=== PATIENT | female | born 1950 | race Caucasian/White ===

== ENCOUNTER 2024-12-14 08:10 | Day surgery (SDC) | payer MEDICARE, SELFPAY ==
[2024-12-14] VITALS (7 sets, daily range): BP systolic 115–171; BP diastolic 54–85; PULSE 61–74; RESP 16–20; TEMP 36.3–36.4; O2SAT 93–99; BMI 15.9
[2024-12-14] MEDS: Lactated Ringers 1,000 ML 15 ML IV (08:44)
--- NOTE | 2024-12-14 08:50 | RAD_ITS ---
PROCEDURE: LUMBAR SPINE 2 OR 3 VIEWS 12/14/2024 REASON FOR EXAM: LT EPIDURAL STEROID INJECTION L4 L5 S1 TECHNIQUE: Procedure Code: RADSPLL Modality: DX Procedure: LUMBAR SPINE 2 OR 3 VIEWS FINDINGS: Intraoperative fluoroscopy was performed. 13.5 seconds of fluoroscopic time. 1.92 mGy. 2 images. See procedure report for full details. RAD/Lumbar Spine 2 or 3 Views IMPRESSION: As above. Reading Location: [id number]
--- NOTE | 2024-12-14 09:11 | PRE.ANES_ITS ---
ASA Classification* ASA Classification ASA Classification: 2 Assessment & Plan Anesthesia* Anesthesia Assessment Anesthesia Assessment: Discussed sedation and/or anesthesia options, risks, benefits, and alternatives with patient/parents/legal guardian/POA. Questions invited. The patient/parents/legal guardian/POA seems to understand and agrees to proceed with anesthesia plan. Reviewed the physical assessment, medical history, allergy history and patient home medications list prior to surgery/procedure/anesthetic and documented any changes. Performed airway and anesthesia risk assessments. Anesthesia Type Anesthesia Type: MAC History Source History Obtained from:: Patient and Chart Anesthesia Focused Assessment* Temperature: 97.6 F Pulse Rate: 72 Blood Pressure: 171/75 Respiratory Rate: 16 Pulse Ox: 99 Oxygen Delivery Method: Room Air Airway Assessment Mouth opens: >3 cm Mallampati Score: I Teeth Condition: Partial (Patient has an upper partial. It will stay in.) Neck Range of motion (ROM): Limited ROM (Somewhat Decreased) Labs Anesthesia Preop lab: CBC CHEMISTRY COAG Pre-Assessment Diagnosis/Proposed Procedure Planned Operative Procedure(s): (L) LEFT LUMBAR TRANSFOAMINAL EPIDURAL STEROID INJECTION AT L4 L5 S1 UNDER FLUOROSCOPY Anesthesia History Anesthesia History - strategic planning director: Anesthesia History - strategic planning director Hx Hospitalization No 12/07/24 13:08 Any Problems With Anesthesia No 12/07/24 13:08 Cholinesterase deficiency No 12/07/24 13:08 You/Your Family Experience No 12/07/24 13:08 fever (hyperthermia) with Relationship Recent Exposure to Contagious No 12/14/24 08:37 Disease Does patient have nerve No 12/07/24 13:08 stimulator Patient instructed to have device shut off --Does patient have Pacemaker No 12/14/24 08:37 or ICD? When Was Last Pacemaker Check QUESTION #4 FULL TEXT: You/Your Family Experience fever (hyperthermia) with Anesthesia Last Oral Intake Last Oral intake: Last Oral Intake NPO since 18:00 12/14/24 08:37 Meds taken in AM with sips of No 12/14/24 08:37 water? Meds patient instructed to take am of surgery PONV PONV - strategic planning director: PONV - strategic planning director Female Yes 12/07/24 13:08 HX of Motion Sickness No 12/07/24 13:08 HX of N/V After Surgery No 12/07/24 13:08 Non-Smoker No 12/07/24 13:08 Duration of Surgery greater No 12/07/24 13:08 than 60 minutes Number of Risk Factors 1 12/07/24 13:08 PONV Score Low Risk 12/07/24 13:08 Height & Weight Height & Weight: Anesthesia: Height & Weight Height 5 ft 4 in 12/14/24 08:37 Weight: 42 kg 12/14/24 08:37 Body Mass Index (BMI) 15.9 12/14/24 08:37 Respiratory Assessment Respiratory Assessment - strategic planning director: Respiratory Tract Infection Hx - strategic planning director Hx Respiratory Tract Infection No 12/07/24 13:08 STOP Sleep Apnea STOP Sleep Apnea - strategic planning director: STOP Sleep Apnea - strategic planning director Hx Hypertension Yes: ON MEDS 12/07/24 13:08 Hx Sleep Apnea No 12/07/24 13:08 CPAP BIPAP Do you snore loudly (louder No 12/07/24 13:08 than talking or can be heard Do you often feel tired/ No 12/07/24 13:08 fatigued/ sleepy during daytime? Has anyone observed you stop No 12/07/24 13:08 breathing during sleep? STOP Results Negative 12/07/24 13:08 QUESTION #5 FULL TEXT : Do you snore loudly (louder than talking or can be heard through closed doors)? Tobacco Use History Tobacco Use History - strategic planning director: Tobacco Use History - strategic planning director Tobacco Use Smoking Status Light Smoker (<10/day) 12/07/24 13:08 Hx Tobacco Use No 12/07/24 13:08 Years Smoking 30 12/07/24 13:08 Packs Smoked per Day Smoking Cessation Date was within the last 15 years Hx Smoking Cessation Date Hx Smoking Cessation No 12/07/24 13:08 Counseling Any additional information?: Yes Smoking Status: Current every day smoker (Patient did not smoke today.) Hematologic Medial History Hematologic Hx - strategic planning director: Hematologic Medical Hx - roller embosser Hx of Blood Transfusion No 12/07/24 13:08 Hx of Transfusion in last 3 No 12/07/24 13:08 Months Date of Last Transfusion (if within last 3 months) Ever experience any problems No 12/07/24 13:08 with transfusion(s)? Specify any problems Hx of Preganancy in last 3 No 12/07/24 13:08 Months Nurse Filling Out Transfusion JZOLLINGE 12/07/24 13:08 & Questions: Date: 12/07/24 12/07/24 13:08 Time: 13:08 12/07/24 13:08 Patient unable to answer at this time (ie. confused, unrespo /Reproduction History /Reproductive History - strategic planning director: /Reproductive Hx- strategic planning director Hx Now No 12/07/24 13:08 Gestational Age (in weeks): EDC: Hx Hx Para Hx Section SAB No 12/07/24 13:08 Active Medications Active Medications: Current Medications Generic Name Dose Route Start Last Admin Trade Name Freq PRN Reason Stop Dose Admin Lactated Ringer's 1,000 mls @ 15 mls/hr 12/14/24 08:30 12/14/24 08:44 IV 15 mls/hr .Q48H BRYAN Administration PFSH Medical History Hx of polycythemia vera Cancer Wears glasses Wears partial dentures Anxiety Marijuana use Alcohol use Arthritis Bladder disease Back pain Smoker Hypertension Home Medications ?Medication ?Instructions ?Recorded ?Last Taken ?Type clonazepam 0.5 mg tablet (Klonopin) 0.5 mg PO BID 11/10 12/03 Unknown History gabapentin 300 mg capsule 600 mg PO DAILY 12/07/24 Unk nown History hydroxyurea 500 mg capsule 500 mg PO DAILY 12/07/24 Un known History metoprolol tartrate 25 mg tablet 25 mg PO BID 12/07/24 12/13/24 History ondansetron 4 mg disintegrating 4 mg PO Q8H PRN nausea and vomiting 12/07/24 Unknown History tablet Allergy/AdvReac Type Severity Reaction Status Date / Time cephalexin Allergy Severe Anaphylaxis Verified 12/14/24 08:36 Penicillins AdvReac Mild Rash Verified 12/14/24 08:36 Surgical History History of ankle surgery Hx of hysterectomy History of appendectomy Social History Smoking Status: Light Smoker (<10/day) Review of Systems (Anesthesia) ROS Narrative System reviewed and no additional complaints, except as documented.
[2024-12-14] MEDS: Lidocaine 1% (5 ml sdv) 5 ML Vial (09:41)
--- NOTE | 2024-12-14 09:47 | PCM.POST.ANE ---
Anesthesia: Postop Eval I Current Vital Signs Temperature: 97.3 F Pulse Rate: 71 Blood Pressure: 115/60 Respiratory Rate: 20 Pulse Ox: 97 Assessment Airway patent: Yes Spontaneous unlabored respirations: Yes nausea: Yes Vomiting: No Anesthesia Complication: No Fluid Hydration Crystalloid volume administer (ml): 200 Total IV fluid infused: 200 Progress Note Anesthesia document: Postop Eval 1 completed: Yes
--- NOTE | 2024-12-14 09:49 | OP.PCM_ITS ---
Operative Report (Standard) Operative Information Date of Procedure: 12/14/24 Pre-Operative Diagnosis: Lumbosacral radiculopathy, lumbosacral degenerative disc disease, lumbosacral spinal stenosis Post-Operative Diagnosis: Lumbosacral radiculopathy, lumbosacral degenerative disc disease, lumbosacral spinal stenosis Surgery/Procedure Performed: Left-sided lumbar transforaminal epidural steroid injection L4-5, L5-S1 under fluoroscopic guidance senior sustainability consultant: No Type of Anesthesia: Local MAC RN Documented Start/Stop Times: Operation Date: 12/14/24 09:50 Case Time Into Pre-Op 12/14/24 08:22 Anesthesia Start 12/14/24 09:33 Into Room 12/14/24 09:33 Procedure Start 12/14/24 09:39 Procedure End 12/14/24 09:43 Anesthesia End 12/14/24 09:45 Out of Room 12/14/24 09:45 Procedure Start Time: 09:50 Procedure Stop Time: 09:50 Select all DRAINS/GRAFTS/IMPLANTS that apply: None Estimated Blood Loss: 1 Specimen collected: No Description of surgery: PROCEDURE PERFORMED: Left-sided lumbar transforaminal epidural steroid injection, L4-5 and L5-S1. ANESTHESIA: MAC BLOOD LOSS: Minimal COMPLICATIONS: None DESCRIPTION OF PROCEDURE: History and physical of today was reviewed. Risks and benefits of the procedure were explained. The patient understood and agreed to proceed. Informed consent was obtained. IV inserted per routine protocol. The patient was taken to the operating room and placed in the prone position with a pillow positioned underneath the abdomen. The left side of the lower back was prepped and draped in a sterile fashion using iodine x3. Under fluoroscopy guidance on oblique view, the L4 through S1 vertebral bodies were visualized. The skin and subcutaneous tissue was anesthetized with approximately 5 mL of 1% lidocaine using a 25-gauge regular needle. Under direct visualization with fluoroscopy at approximately 35-degree angle, starting on the left L4, ending on the left L5, using a 22-gauge 3 1/2-inch spinal needle, the needle was advanced via the skin. The tip of the needle was maneuvered and directed towards the inferior and medial gutter of the transverse process at the superiormost aspect of the neural foramen. Once the tip of the needle was at the vicinity of the foramen, after negative aspiration for blood or CSF, a total of 1 mL of contrast was injected in divided doses between both levels to confirm correct placement of the needle as well as medial spread. The confirmation was obtained on AP as well as lateral view. After repeated negative aspiration and confirmation on AP as well as lateral view, a total of 6 mL of preservative-free 0.25% Marcaine with 80 mg of Depo-Medrol was injected in divided doses between both levels. The needles were then removed intact. The patient experienced no sign or symptoms of intrathecal or intravascular injection. The patient experienced no paresthesia. The procedure was completed without any apparent difficulty or any complications. The patient appeared to tolerate it well. Assessment and plan: This is a 74-year-old female with lumbosacral radiculopathy, lumbosacral degenerative disc disease, lumbosacral spinal stenosis, status post left-sided lumbar transforaminal epidural steroid injection L4-5, L5-S1 under fluoroscopic guidance, patient will continue her current medications, patient will follow-up in approximately 2 weeks for reevaluation. Surgical Findings: 0 Complications Complications: No Admit VTE Documentation VTE Present on Admission: No VTE Pharm Prophylaxis ordered?: No
--- NOTE | 2024-12-14 12:03 | POSTOPAN2_ITS ---
Anesthesia Postop Eval I Sum Postop Eval Completion status Anesthesia document: Postop Eval 1 completed: Yes Anesthesia Postop Eval I Summary Anesthesia Postop Eval I Summary: Anesthesia Postop Eval I: Assessment Summary Airway patent Yes 12/14/24 09:47 GRAVEL [email or web address].[email or web address] Spontaneous unlabored Yes 12/14/24 09:47 GRAVEL WHEELER.CSIR respirations Mental status nausea Yes 12/14/24 09:47 GRAVEL WHEELER.CSIR Vomiting No 12/14/24 09:47 GRAVEL WHEELER.CSIR Anesthesia Postop Eval I: Fluid Summary Crystalloid volume administer 200 12/14/24 09:47 GRAVEL WHEELER.CSIR (ml) Colloids volume administered ( ml) Blood Product volume administered (ml) Total IV fluid infused 200 12/14/24 09:47 GRAVEL WHEELER.CSIR Anesthesia Postop Eval I: Summary Notes Anesthesia Complication No 12/14/24 09:47 GRAVEL WHEELER.CSIR Anesthesia Complication Comment: Post-operative progress note Anesthesia: Postop Eval II Evaluation Mental status: Awake and Calm Pain Level: 1 nausea: No Vomiting: No Complications Anesthesia Complication: No
--- NOTE | 2024-12-14 12:03 | PCM.POSTANE2 ---
Anesthesia Postop Eval I Sum Postop Eval Completion status Anesthesia document: Postop Eval 1 completed: Yes Anesthesia Postop Eval I Summary Anesthesia Postop Eval I Summary: Anesthesia Postop Eval I: Assessment Summary Airway patent Yes 12/14/24 09:47 GENERAL PASSENGER AGENT.[email or web address] Spontaneous unlabored Yes 12/14/24 09:47 GENERAL PASSENGER AGENT.CSIR respirations Mental status nausea Yes 12/14/24 09:47 GENERAL PASSENGER AGENT.CSIR Vomiting No 12/14/24 09:47 GENERAL PASSENGER AGENT.CSIR Anesthesia Postop Eval I: Fluid Summary Crystalloid volume administer 200 12/14/24 09:47 GENERAL PASSENGER AGENT.CSIR (ml) Colloids volume administered ( ml) Blood Product volume administered (ml) Total IV fluid infused 200 12/14/24 09:47 GENERAL PASSENGER AGENT.CSIR Anesthesia Postop Eval I: Summary Notes Anesthesia Complication No 12/14/24 09:47 GENERAL PASSENGER AGENT.CSIR Anesthesia Complication Comment: Post-operative progress note Anesthesia: Postop Eval II Evaluation Mental status: Awake and Calm Pain Level: 1 nausea: No Vomiting: No Complications Anesthesia Complication: No
== END 2024-12-14 10:31 | disposition home or self-care (01) ==
LOC: SDC 08:13 → AC 08:19
PROVIDERS: PCP Physician Assistant; Referring Provider Anesthesiology Pain Medicine; Visit Provider Anesthesiology Pain Medicine
PROC: 3E0S3BZ Introduction of Anesthetic Agent into Epidural Space, Percutaneous Approach (ICD-10-PCS; CPT 64484; principal; 2024-12-14 09:45)
DX: M48.07 Spinal stenosis, lumbosacral region (principal); M51.17 Intervertebral disc disorders with radiculopathy, lumbosacral region
CPT/HCPCS: 64484; 01992; 64483; 72100; J2405